=== PATIENT | female | born 1950 | race Caucasian/White ===

== ENCOUNTER 2018-01-23 15:38 | Emergency (ER) | payer MEDICARE ==
[~2018-01-23] VITALS: Ht 162.6 cm; Wt 65.8 kg
[~2018-01-23 15:38] MED LIST: ALLERCLEAR D-21 EACH PO; BAYER CHEWABLE81 MG PO; CALCIUM 500 +1 EAC5 PO; CELEBREX 200 M200 M1 PO; COLACE100 MG PO; COZAAR 25 MG TA25 M1 PO; FISH OIL 1,0001 EAC8 PO; FISH OIL 1,001000 M2 PO; METFORMIN HCL500 MG PO; METOPROLOL TAR100 MG PO; NORCO 5-325 TA1 EAC1 PO; NORCO 5-325 TA1 EACH PO; ONGLYZA5 MG PO; TRAMADOL 50 MG50 MG PO; TUMS PO; UNICOMPLEX M TA1 TA1 PO; VITAMIN D1000 UNI1 PO; ZOCOR40 MG PO
[2018-01-23] MEDS ORDERED: MOBIC15 MG PO (15:50)
[2018-01-23] MEDS ORDERED: ASPIRIN81 M2 PO (15:50)
[2018-01-23 20:05] VITALS: BP 138/60
== END 2018-01-23 20:05 | disposition home or self-care (01) ==
LOC: M.ERS 15:38
DX: G43.709 Chronic migraine without aura, not intractable, without status migrainosus (principal); I25.2 Old myocardial infarction; I10 Essential (primary) hypertension; E11.9 Type 2 diabetes mellitus without complications; Z98.890 Other specified postprocedural states; Z88.0 Allergy status to penicillin